=== PATIENT | male | born 1975 | race Caucasian/White ===

== ENCOUNTER 2016-07-18 10:33 | Emergency (ER) | payer SELFPAY ==
[~2016-07-18] VITALS: Ht 177.8 cm; Wt 109.0 kg
[2016-07-18] MEDS ORDERED: LIDOCAINE 1%, 20ML ONE (10:50)
[2016-07-18] MEDS ORDERED: LIDOCAINE 1%, 20ML SQ ONE (11:00)
[2016-07-18] MEDS ORDERED: SUBOXONE PO (11:12)
[2016-07-18] MEDS ORDERED: CEFAZOLIN 1,000 MG ONE (12:15)
[2016-07-18] MEDS ORDERED: CEFAZOLIN 1,000 MG IM ONE (12:30)
[2016-07-18 12:52] VITALS: BP 139/91
== END 2016-07-18 13:05 | disposition home or self-care (01) ==
LOC: ED 10:45
DX: S61.012A Laceration without foreign body of left thumb without damage to nail, initial encounter (principal); W25.XXXA Contact with sharp glass, initial encounter; W45.8XXA Other foreign body or object entering through skin, initial encounter; Y93.89 Activity, other specified; Y99.8 Other external cause status; Y92.89 Other specified places as the place of occurrence of the external cause
CPT/HCPCS: 12001; 73140; 96372; 99284; J0690; J3490

== ENCOUNTER 2017-01-18 20:48 | Emergency (ER) | payer MEDICAID ==
[~2017-01-18] VITALS: Ht 177.8 cm; Wt 108.1 kg
[~2017-01-18 20:48] MED LIST: SUBOXONE PO
[2017-01-18 20:49] VITALS: BP 143/74
[2017-01-18 22:30] LABS: HEMATOCRIT 38.8 % (39.2-51.8); HEMOGLOBIN 13.1 g/dL (13.7-18.0); WHITE BLOOD COUNT 7.9 x10^3/uL (3.4-10)
[2017-01-18 22:33] LABS: BLOOD UREA NITROGEN 20 mg/dL (7-18)
== END 2017-01-18 23:39 | disposition home or self-care (01) ==
LOC: ED 23:33
DX: R60.0 Localized edema (principal)
CPT/HCPCS: 36415; 80048; 82040; 83880; 85025; 93970